=== PATIENT | female | born 1955 | race African-American/Black ===

== ENCOUNTER 2023-11-07 11:53 | Outpatient (CLI) | payer MEDICARE, SELFPAY ==
[2023-11-07 12:45] LABS: Alanine Aminotransferase 19 U/L (6-35); Aspartate Amino Transferase 28 U/L (14-36)
== END 2023-11-07 11:54 | disposition home or self-care (01) ==
LOC: ANHLAB 11:59
PROVIDERS: PCP Internal Medicine; Visit Provider Podiatrist Foot & Ankle Surgery
DX: B35.1 Tinea unguium (principal)
CPT/HCPCS: 36415; 84450; 84460

== ENCOUNTER 2025-07-10 02:41 | Day surgery (SDC) | payer MEDICARE, SELFPAY ==
[2025-06-29 10:40] VITALS: BMI 24.6
[2025-07-10 11:42] VITALS: BP 169/109; PULSE 82; RESP 16; TEMP 36.3; O2SAT 99; BMI 24.2
[2025-07-10] MEDS: LACTATED RINGERS 1,000 ML 150 ML IV CONT (11:53)
--- NOTE | 2025-07-10 12:21 | WPDANESEPPF ---
Anes - Initial Pre Proc Eval Procedure: Operation Date: 07/10/25 13:00 Proposed Procedures p Screening Colonoscopy - Michele Vazquez MD Date/Time: 07/10/25 12:21 Surgeon: Michele Vazquez MD Pre Op Diagnosis: Encounter for screening for malignant neoplasm of Patient Data Age: 70 Gender: F Height: 1.7 m Weight: 70.1 kg Last Vital Signs Temp 97.3 F L 07/10/25 11:42 Pulse 82 07/10/25 11:42 Resp 16 07/10/25 11:42 BP 169/109 H 07/10/25 11:42 Pulse Ox 99 07/10/25 11:42 O2 Del Method Room Air 07/10/25 11:42 Allergies Allergy/AdvReac Type Severity Reaction Status Date / Time No Known Allergies Allergy Verified 07/10/25 11:41 Home Medications ?Medication ?Instructions ?Recorded ?Confirmed ?Type amlodipine 10 mg tablet 10 mg PO DAILY 02/06/24 07/10/25 History atorvastatin 20 mg tablet 20 mg PO DAILY 02/06/24 07/10/25 History metformin 500 mg tablet 500 mg PO DAILY 02/06/24 07/10/25 History Laboratory Tests 07/10/25 11:52 POC Capillary Glucose 127 H mg/dl (65-105) Patient hx anesthesia problems: none Family hx anesthesia problems: none Results Review: All pre-operative results and documents have been reviewed as part of the pre-operative evaluation. [facility] Past Medical History Medical History Diabetes Hypertension Hyperlipidemia Surgical History Surgical History History of hysterectomy H/O laparoscopy History of ankle surgery Family History Family History Grandparent Diabetes mellitus Hypertension Heart disease Breast cancer Social History Social History Smoking status: Never smoker Alcohol intake: current Drinks per week: 3 Substance use: never Substance use type: does not use Lack of Transportation: No Lack of Food: Never True Current Housing: I Have Housing Concerned About Future Housing: No Difficulty Paying Gas/Electric Bills: No Difficulty Paying for Meds: No Currently Unemployed: No Education: Trade/Vocational Certificate Difficulty w/ Childcare or Family Care: No Living arrangements: with family Occupation/Education: retired Gender identity (if verbalized by the patient): Female Sexual Orientation (if Verbalized by the Patient): Straight or Heterosexual Spiritual care concerns: No Anes - Eval Final PreProcedure Day of Procedure 07/10/25 12:21 Patient weight: normal Lungs: normal air movement Airway: Mallampati scale class II Last oral intake: >/= 8 hours ASA classification: III Emergent: no Anesthetic plan: proceed Anesthesia type and monitoring: general GIVS and standard monitoring Results Review: All pre-operative results and documents have been reviewed as part of the pre-operative evaluation. HTN, DM fsbs 127, hyperlipidemia. Active w 1-2 fos, no cp or sob. Informed Consent: The patient's anesthetic plan and its attendant risks and benefits were discussed with the patient/family/POA. Questions were solicited and answers provided to the satisfaction of the patient/family/POA.
--- NOTE | 2025-07-10 12:57 | PM.IMHP2 ---
H&P: HPI History of Present Illness Date/Time: 07/10/25 12:57 Chief Complaint: History of colon polyps Narrative: The patient has a history of colonic polyps, the last colonoscopy was 5 years ago. Review of Systems Review of Systems: All systems reviewed & are unremarkable except as noted in HPI and below PMFSH Past Medical History Medical History Diabetes Hypertension Hyperlipidemia Surgical History Surgical History History of hysterectomy H/O laparoscopy History of ankle surgery Family History Family History Grandparent Diabetes mellitus Hypertension Heart disease Breast cancer Social History Social History Smoking status: Never smoker Alcohol intake: current Drinks per week: 3 Substance use: never Substance use type: does not use Lack of Transportation: No Lack of Food: Never True Current Housing: I Have Housing Concerned About Future Housing: No Difficulty Paying Gas/Electric Bills: No Difficulty Paying for Meds: No Currently Unemployed: No Education: Trade/Vocational Certificate Difficulty w/ Childcare or Family Care: No Living arrangements: with family Occupation/Education: retired Gender identity (if verbalized by the patient): Female Sexual Orientation (if Verbalized by the Patient): Straight or Heterosexual Spiritual care concerns: No Meds Home Medications and Allergies Home Medications ?Medication ?Instructions ?Recorded ?Confirmed ?Type amlodipine 10 mg tablet 10 mg PO DAILY 02/06/24 07/10/25 History atorvastatin 20 mg tablet 20 mg PO DAILY 02/06/24 07/10/25 History metformin 500 mg tablet 500 mg PO DAILY 02/06/24 07/10/25 History Allergies Allergy/AdvReac Type Severity Reaction Status Date / Time No Known Allergies Allergy Verified 07/10/25 11:41 Vital Signs Vital Signs - 24 hr 07/10/25 11:42 Temperature 97.3 F L Pulse Rate 82 Respiratory Rate 16 Blood Pressure 169/109 H Pulse Oximetry 99 Oxygen Delivery Room Air Exam Const: General: cooperative and healthy appearing Resp: Effort & Inspection: normal respiratory effort and able to speak in complete sentences Auscultation: clear to auscultation bilaterally Cardio: Rate: regular rate Rhythm: regular rhythm GI: Inspection: normal to inspection GI Palp: No No hepatosplenomegaly present Auscultation: normal bowel sounds Rectal Exam: deferred Skin: General skin exam: normal color Psych: Appearance: grossly normal Mental Status: mental status grossly normal Assessment and Plan Assessment and plan (1) History of colonic polyps: Code(s): Z86.0100 - Personal history of colon polyps, unspecified Status: Acute Assessment and Plan: The patient is deemed a good candidate for the procedure. Consent signed. Will proceed. Prior Studies I have reviewed the following patient records and this information was taken into consideration when formulating the assessment and plan.: previous labs, previous ER visits, previous hospitalizations and previous clinic visits
--- NOTE | 2025-07-10 13:15 | S_PTH ---
PATIENT: Nata Candelaria LOC: [facility] Colon#:[id number] AGE/SX: 70/F ROOM: RE07/10/[address]: Michele Vazquez MD : 1955 BED: DIS: 07/10/2025 SPEC #: [id number] RECD: 07/10/25 13:47 STATUS: UQIANA REQ #: [id number] HANDY: 07/10/25 13:[address]: Michele Vazquez DEPT: [facility] Surgical RECD BY: Camila Corea ENTERED: 07/10/25 13:51 SP TYPE: Surgical OTHR DR: Naldo SwainMD Tissues: A - Colon Polypectomy B - Colon Polypectomy Procedures: Hematoxylin and Eosin Stain Gross and Microscopic Level 4
[2025-07-10 13:18] VITALS: BP 138/79; PULSE 81; RESP 21; O2SAT 98
[2025-07-10 13:28] VITALS: BP 142/86; PULSE 75; RESP 20; O2SAT 99
[2025-07-10 13:38] VITALS: BP 172/93; PULSE 74; RESP 20; O2SAT 99
== END 2025-07-10 13:47 | disposition home or self-care (01) ==
PROVIDERS: PCP Internal Medicine; Visit Provider Internal Medicine Gastroenterology
PROC: 0DJD8ZZ Inspection of Lower Intestinal Tract, Via Natural or Artificial Opening Endoscopic (ICD-10-PCS; CPT 45378; principal; 2025-07-10 13:00)
DX: Z12.11 Encounter for screening for malignant neoplasm of colon (principal); D12.2 Benign neoplasm of ascending colon; D12.3 Benign neoplasm of transverse colon; E78.5 Hyperlipidemia, unspecified; I10 Essential (primary) hypertension; E11.9 Type 2 diabetes mellitus without complications; Z79.84 Long term (current) use of oral hypoglycemic drugs; Z98.890 Other specified postprocedural states; Z80.3 Family history of malignant neoplasm of breast; Z82.49 Family history of ischemic heart disease and other diseases of the circulatory system
CPT/HCPCS: 45385; 82948; 88305; J2003; J2704; J7120